=== PATIENT | male | born 1940 | race Caucasian/White ===

== ENCOUNTER 2018-10-03 10:26 | Inpatient (IN) | payer MEDICARE, MEDICAID ==
[~2018-10-03] VITALS: Ht 182.9 cm; Wt 83.5 kg
--- NOTE | 2018-10-03 10:35 | NUR ---
Pt is unable to recall his home medications.
--- NOTE | 2018-10-03 11:21 | NUR ---
Pending CT scan results, patient is AOX4, hard of hearing, resting comfortably on gurney, not in acute distress,+R knee pains 2-5/10 pain scale when not moving the affected site, CMS intact
--- NOTE | 2018-10-03 13:12 | NUR ---
Patient is eating hot lunch tray with good appetite.
[2018-10-03] MEDS ORDERED: MORPHINE SULFATE 2 MG/1 ML DISP.SYRIN IV ONE (13:15)
[2018-10-03] MEDS ORDERED: ONDANSETRON 4 MG/2 ML VIAL IV ONE (13:15)
[2018-10-03] MEDS ORDERED: IV NORMAL SALINE 1000 ML BAG IV ONE (13:15)
[2018-10-03] MEDS ORDERED: MORPHINE SULFATE 4 MG/1 ML DISP.SYRIN ONE ×2 (13:20→15:19)
[2018-10-03] MEDS ORDERED: ONDANSETRON 4 MG/2 ML VIAL ONE (13:20)
[2018-10-03 13:27] LABS: CARBON DIOXIDE 23 mmol/L (21-32); CHLORIDE 106 mmol/L (98-107); CREATININE 0.9 mg/dL (0.6-1.3); GLUCOSE 115 mg/dL (74-106); POTASSIUM 4.2 mmol/L (3.5-5.1); UREA NITROGEN, BLOOD 22 mg/dL (7-18)
[2018-10-03 13:29] LABS: BASOPHILS # (AUTO) 0.1 K/uL (0.0-8.0); BASOPHILS % (AUTO) 0.5 % (0.0-2.0); EOSINOPHILS # (AUTO) 0.1 K/uL (0.0-0.7); HEMATOCRIT 40.3 % (36.7-47.1); HEMOGLOBIN 13.3 g/dL (12.5-16.3); LYMPHOCYTES # (AUTO) 0.8 K/uL (20.0-40.0); LYMPHOCYTES % (AUTO) 5.9 % (20.5-51.5); MEAN CORPUSCULAR HEMOGLOBIN 31.1 uug (23.8-33.4); MEAN CORPUSCULAR HGB CONC 33 g/dL (32.5-36.3); MEAN CORPUSCULAR VOLUME 94.1 fL (73.0-96.2); MONOCYTES # (AUTO) 0.9 K/uL (2.0-10.0); MONOCYTES % (AUTO) 6.6 % (0.0-11.0); NEUTROPHILS # (AUTO) 11.2 K/uL (1.8-8.9); PLATELET COUNT (AUTO) 204 K/uL (152-348); RED BLOOD CELL COUNT(AUTO) 4.29 MIL/uL (4.06-5.63)
[2018-10-03 13:33] LABS: ALANINE AMINOTRANSFERASE 37 U/L (16-63); ALKALINE PHOSPHATASE 92 U/L (50-136); ASPARTATE AMINOTRANSFERASE 33 U/L (15-37); BILIRUBIN,DIRECT 0.1 mg/dL (0.0-0.2); BILIRUBIN,TOTAL 0.5 mg/dL (0.2-1.0); LIPASE 91 U/L (73-393); TOTAL PROTEIN, SERUM 8.1 g/dL (6.4-8.2)
--- NOTE | 2018-10-03 14:27 | NUR ---
EPIC hospitalist is here & evaluating the patient.
--- NOTE | 2018-10-03 14:58 | NUR ---
Per Dr Barkley, 1st call was done to the ortho doctor, pending callback from ortho doctor [email or web address]
[2018-10-03] MEDS ORDERED: Z GUARD REMEDY PASTE 57 GM TUBE TOP PRN (15:15)
[2018-10-03] MEDS ORDERED: MORPHINE SULFATE 2 MG/1 ML DISP.SYRIN IV PRN (15:15)
[2018-10-03] MEDS ORDERED: MAGNESIUM HYDROXIDE 30 ML LIQUID UDC PO PRN (15:15)
[2018-10-03] MEDS ORDERED: ONDANSETRON 4 MG/2 ML VIAL IV PRN (15:15)
[2018-10-03] MEDS ORDERED: ACETAMINOPHEN 325 MG TABLET PO PRN (15:15)
--- NOTE | 2018-10-03 15:19 | NUR ---
2nd dose of IV Morphine 4mg & 4mg IV Zofran given per Dr Barkley's order. Monitored for adverse rxn & for relief of pain to right knee.
--- NOTE | 2018-10-03 15:20 | NUR ---
Patient was found to be absent from the unit at this time. Patient's personal belongings are no longer in the patient's room and patient may have left the hospital with his personal belongings. Security notified and patient is no where to be found in and around hospital premises. Charge nurse and Nurse Reservations And Ticketing Agent notified.
--- NOTE | 2018-10-03 15:30 | NUR ---
Received patient from ER at this time. Stable condition. No signs of distress. No SOB. Alert/oriented x3. 10/10 pain verbalized by patient in right knee where fracture is located. Vital signs taken. Patient's family notified. MD orders have already been placed. Will follow orders. will continue to monitor throughout shift.
[2018-10-03] MEDS ORDERED: MORPHINE SULFATE 4 MG/1 ML DISP.SYRIN IV STA (15:31)
[2018-10-03] MEDS ORDERED: ONDANSETRON 4 MG/2 ML VIAL IV STA (15:31)
--- NOTE | 2018-10-03 15:31 | NUR ---
3rd floor nurse Jamie updated re: pain medicine given in ER department
[2018-10-03 15:57] VITALS: BP 179/99
[2018-10-03] MEDS ORDERED: ASPI81TA31 PO (17:33)
[2018-10-03] MEDS ORDERED: MEGE20TA PO (17:33)
[2018-10-03] MEDS ORDERED: ATOR20TA PO (17:33)
--- NOTE | 2018-10-03 18:30 | NUR ---
Patient resting comfortably in bed at this time. Does not complain of any pain at this time. Patient is only in pain when the right leg is being moved. Patient is comfortably in current position. Consent for surgery signed by patient and witnessed by RN. Surgery is scheduled 9:00 A.M. tomorrow (10/04/18) with Dr. Tejeda. Patient in stable condition at this time. Will continue to monitor until end of shift.
--- NOTE | 2018-10-03 19:30 | NUR ---
PATIENT RECEIVED LYING IN BED. A/O X3. NO SIGNS OF ACUTE DISTRESS. COMFORT AND SAFETY MEASURES PROVIDED. BED IN LOWEST POSITION, BED ALARM ON, CALL LIGHT WITHIN REACH, SIDE [id number]. WILL CONTINUE TO MONITOR PATIENT AND PLACE PATIENT ON NPO AFTER MIDNIGHT.
[2018-10-03 20:00] VITALS: BP 155/80
--- NOTE | 2018-10-03 21:06 | NUR ---
c/o of pain in right knee. Administered Morphine 2mg. Patient tolerated well.
[2018-10-03] MEDS: HYDROCODONE/APAP 5-325MG TABLET PO PRN ×2 (23:38→23:40)
--- NOTE | 2018-10-03 23:41 | NUR ---
patient c/o of pain in right knee. administered norco and tolerated well. will continue to monitor.
--- NOTE | 2018-10-04 00:37 | NUR ---
Spoke with Dr. Stoner regarding patients new throbbing pain that started around 2230 on the right knee. same order for morphine 2mg, but increased frequency from every 4 hours to every 2 hours.
[2018-10-04] MEDS: MORPHINE SULFATE 2 MG/1 ML DISP.SYRIN IV PRN ×3 (00:42→07:05)
--- NOTE | 2018-10-04 00:44 | NUR ---
c/o of right knee pain. administered morphine. tolerated well.
[2018-10-04 04:28] VITALS: BP 139/84
--- NOTE | 2018-10-04 05:00 | NUR ---
c/o of pain administered morphine. tolerated well.
[2018-10-04 06:16] LABS: BASOPHILS # (AUTO) 0.1 K/uL (0.0-8.0); BASOPHILS % (AUTO) 0.6 % (0.0-2.0); EOSINOPHILS # (AUTO) 0.2 K/uL (0.0-0.7); HEMATOCRIT 36.2 % (36.7-47.1); HEMOGLOBIN 12.3 g/dL (12.5-16.3); LYMPHOCYTES # (AUTO) 1.1 K/uL (20.0-40.0); LYMPHOCYTES % (AUTO) 10.1 % (20.5-51.5); MEAN CORPUSCULAR HEMOGLOBIN 31.8 uug (23.8-33.4); MEAN CORPUSCULAR HGB CONC 34 g/dL (32.5-36.3); MEAN CORPUSCULAR VOLUME 93.9 fL (73.0-96.2); MONOCYTES # (AUTO) 1.4 K/uL (2.0-10.0); MONOCYTES % (AUTO) 12.7 % (0.0-11.0); NEUTROPHILS # (AUTO) 8.4 K/uL (1.8-8.9); NEUTROPHILS % (AUTO) 74.6 % (38.5-71.5); PLATELET COUNT (AUTO) 192 K/uL (152-348); RED BLOOD CELL COUNT(AUTO) 3.86 MIL/uL (4.06-5.63); WHITE BLOOD COUNT (AUTO) 11.2 K/uL (3.6-10.2)
--- NOTE | 2018-10-04 06:23 | NUR ---
patient NPO since midnight. slept intermittently. a/o x3. no signs of acute distress. comfort and safety measures provided. bed in lowest position, bed alarm on, call light within reach, side railsx2. will continue to monitor and endorse patient to oncoming shift for continuing care.
[2018-10-04 06:29] LABS: CARBON DIOXIDE 25 mmol/L (21-32); CHLORIDE 103 mmol/L (98-107); CHOLESTEROL 116 mg/dL (<200); GLUCOSE 107 mg/dL (74-106); HDL CHOLESTEROL 49 mg/dL (40-60); MAGNESIUM 1.9 mg/dL (1.8-2.4); PHOSPHOROUS 3.1 mg/dL (2.5-4.9); POTASSIUM 3.8 mmol/L (3.5-5.1); TRIGLYCERIDES 51 MG/DL (30-150); UREA NITROGEN, BLOOD 18 mg/dL (7-18)
--- NOTE | 2018-10-04 07:06 | NUR ---
patient c/o of knee pain. administered morphine. tolerated well.
[2018-10-04 07:22] LABS: *BILIRUBIN,URIN NEGATIVE (NEGATIVE); *BLOOD, URINE NEGATIVE (NEGATIVE); *CLARITY,URINE CLEAR (CLEAR); *COLOR,URINE YELLOW (YELLOW); *KETONES,URINE NEGATIVE (NEGATIVE); *UROBILINOGEN,URINE 0.2 E.U./dl (NORMAL); LEUKOCYTE ESTERASE ,URINE NEGATIVE (NEGATIVE); NITRITE, URINE NEGATIVE (NEGATIVE); PH,URINE 5.5 (5.0-8.0); UGLUCOSE NEGATIVE (NEGATIVE)
[2018-10-04] MEDS ORDERED: POLYMYXIN B SULFATE 500,000 UNITS, BACITRACIN 50,000 UNITS, NORMAL SALINE 20 ML MC ONE ×3 (08:00)
[2018-10-04] MEDS ORDERED: BUPIVACAINE 0.25% 30 ML VIAL ONE (08:09)
--- NOTE | 2018-10-04 08:30 | NUR ---
PICKED UP BY OR FOR SURGERY
[2018-10-04] MEDS ORDERED: MIDAZOLAM HCL 2 MG/2 ML VIAL ONE (08:55)
[2018-10-04] MEDS ORDERED: FENTANYL CITRATE 100 MCG/2 ML AMPUL ONE ×2 (08:55→11:23)
[2018-10-04] MEDS ORDERED: CEFAZOLIN 1 G VIAL MC ONE (09:00)
[2018-10-04] MEDS ORDERED: LIDOCAINE-MPF 2% 5 ML VIAL MC ONE (09:00)
[2018-10-04] MEDS ORDERED: PROPOFOL 200 MG/20 ML BOTTLE IV ONE (09:00)
[2018-10-04] MEDS ORDERED: ONDANSETRON 4 MG/2 ML VIAL IV ONE (09:00)
[2018-10-04] MEDS ORDERED: SEVOFLURANE 250 ML BOTTLE IH ONE (09:00)
[2018-10-04] MEDS ORDERED: IV LACTATED RINGERS SOLUTION 1,000 ML BAG MC ONE (09:00)
[2018-10-04] MEDS ORDERED: VANCOMYCIN 1000 MG VIAL ONE (10:35)
[2018-10-04] MEDS ORDERED: IV D5W-0.45% NS +20 KCL 1,000 ML IV ONE (11:18)
--- NOTE | 2018-10-04 12:03 | NUR ---
RETURNED FROM OR. C/O PAIN REPORT RECEIVED FROM OR NURSE
[2018-10-04] MEDS: MORPHINE SULFATE 4 MG/1 ML DISP.SYRIN IV PRN ×2 (12:17→20:26)
[2018-10-04 12:25] VITALS: BP 161/81
[2018-10-04] MEDS: HYDROCODONE/APAP 10-325 MG TABLET PO PRN (12:26)
[2018-10-04] MEDS: POTASSIUM CHLORIDE 20 MEQ in IV D5 1/2 NS 1000 ML 1,000 ML IV PRN (12:31)
[2018-10-04 12:35] VITALS: BP 157/80
[2018-10-04 12:55] VITALS: BP 154/76
--- NOTE | 2018-10-04 14:30 | NUR ---
took over care from Allie rn, pt asleep at this time, right leg with immobilizer and elevated on pillow, ice pack on, some swelling noted on his right foot, pedal pulses present, vs stable, needs attended, call light within reach
[2018-10-04 15:18] VITALS: BP 148/76
--- NOTE | 2018-10-04 16:00 | NUR ---
voided per urinal and repositioned to side with right leg elevated
[2018-10-04] MEDS: CEFAZOLIN 1 G in PREMIXED 1 EACH IV SCH (17:25)
--- NOTE | 2018-10-04 18:38 | NUR ---
resting, reading his book, repositioned to right side with pillow for support, no bleeding noted, dsg intact with immobilizer on right leg, voided qs this shift, ate good, no n/v, all needs attended, safety measures maintained.
--- NOTE | 2018-10-04 19:30 | NUR ---
Patient received lying in bed and reading book. A/o x3. No signs of acute distress or concerns at this time. Safety and comfort measures provided. Bed in lowest position, bed alarm on, call light within reach, side rails up x2. dressing in tact with immobilizer on right leg and pedal pulses normal. no n/v. Will continue care.
[2018-10-04 20:00] VITALS: BP 138/85
--- NOTE | 2018-10-04 23:40 | NUR ---
c/o of pain. administered norco. patient tolerated well. Addendum: 10/05/18 at 0512 by ELOISE STEWART RN correction: date: is 10/04/18 Addendum: 10/05/18 at 0585 by ELOISE STEWART RN 2nd correction: date: 10/03/18 at 9585.
[2018-10-05] MEDS: MORPHINE SULFATE 4 MG/1 ML DISP.SYRIN IV PRN ×4 (00:13→06:44)
[2018-10-05] MEDS: CEFAZOLIN 1 G in PREMIXED 1 EACH IV SCH (02:00)
[2018-10-05] MEDS: POTASSIUM CHLORIDE 20 MEQ in IV D5 1/2 NS 1000 ML 1,000 ML IV PRN (04:08)
[2018-10-05 04:50] VITALS: BP 137/73
--- NOTE | 2018-10-05 05:39 | NUR ---
Patient received lying in bed and reading book. A/o x3. No signs of acute distress or concerns at this time. Safety and comfort measures provided. Bed in lowest position, bed alarm on, call light within reach, side rails up x2. dressing in tact with immobilizer on right leg and pedal pulses normal. no n/v. Will continue care. Addendum: 10/05/18 at 0540 by ELOISE STEWART RN patient sleeping intermittently throughout the night. No signs of acute distress or concerns at this time. Safety and comfort measures provided. Bed in lowest position, bed alarm on, call light within reach, side rails up x2. prescribed medications administered and tolerated well. dressing in tact with immobilizer on right leg and pedal pulses present. no n/v. Will continue care and endorse to oncoming shift.
[2018-10-05] MEDS: HYDROCODONE/APAP 10-325 MG TABLET PO PRN ×4 (05:48→21:10)
--- NOTE | 2018-10-05 06:45 | NUR ---
medications administered c/o of pain and morphine 4 mg administered and tolerated well at times: 0423, 0205, 0013, 2025, 0644 c/o of pain and norco administered and tolerated well at times: 0540
[2018-10-05 06:53] LABS: BASOPHILS % (AUTO) 0.4 % (0.0-2.0); EOSINOPHILS # (AUTO) 0.2 K/uL (0.0-0.7); HEMATOCRIT 28.1 % (36.7-47.1); HEMOGLOBIN 9.6 g/dL (12.5-16.3); LYMPHOCYTES # (AUTO) 1.1 K/uL (20.0-40.0); LYMPHOCYTES % (AUTO) 8.9 % (20.5-51.5); MEAN CORPUSCULAR HEMOGLOBIN 31.9 uug (23.8-33.4); MEAN CORPUSCULAR HGB CONC 34 g/dL (32.5-36.3); MEAN CORPUSCULAR VOLUME 93.7 fL (73.0-96.2); MONOCYTES # (AUTO) 1.9 K/uL (2.0-10.0); MONOCYTES % (AUTO) 15.8 % (0.0-11.0); NEUTROPHILS # (AUTO) 8.9 K/uL (1.8-8.9); NEUTROPHILS % (AUTO) 72.9 % (38.5-71.5); PLATELET COUNT (AUTO) 162 K/uL (152-348); RED BLOOD CELL COUNT(AUTO) 2.99 MIL/uL (4.06-5.63); WHITE BLOOD COUNT (AUTO) 12.2 K/uL (3.6-10.2)
[2018-10-05 07:06] LABS: CARBON DIOXIDE 25 mmol/L (21-32); CHLORIDE 101 mmol/L (98-107); CREATININE 0.8 mg/dL (0.6-1.3); GLUCOSE 124 mg/dL (74-106); POTASSIUM 4.3 mmol/L (3.5-5.1); UREA NITROGEN, BLOOD 14 mg/dL (7-18)
--- NOTE | 2018-10-05 08:15 | NUR ---
Received patient, awake, alert x3, resting in bed. With tolerable pain over right knee. Knee immobilizer in place. Surgical dressing intact and dry. With IV fluids running at left hand g20 KCL 20 Meq D51/2 NS. Not in any form of distress, will continue to monitor.
[2018-10-05] MEDS: ENSURE CLEAR 240 ML LIQUID (MIX BERRY) PO SCH (08:27)
[2018-10-05 08:59] LABS: LYMPHOCYTES % (MANUAL) 12 % (20-40); MONOCYTES % (MANUAL) 15 % (2-10); NEUTROPHILS % (MANUAL) 73 % (42-75)
--- NOTE | 2018-10-05 09:30 | NUR ---
Seen and followed by Physical therapy, maintained non-weight bearing on right knee. Knee immobilizer in place.
[2018-10-05] MEDS: IV NS 1000 ML 1,000 ML IV PRN (10:59)
[2018-10-05 11:40] VITALS: BP 123/66
[2018-10-05] MEDS: FAMOTIDINE 20 MG TABLET PO SCH ×2 (12:48→21:10)
[2018-10-05 15:40] VITALS: BP 131/65
--- NOTE | 2018-10-05 20:00 | NUR ---
RECEIVED PATIENT AWAKE IN BED. PATIENT IS ALERT AND ORIENTED X2 WITH NO COMPLAINTS OF PAIN OR DISTRESS AT THIS TIME. IV SITE IS PATENT AND INTACT. VS ARE WNL AND PATIENT IS STABLE. ALL SAFETY AND FALL PRECAUTION MEASURES ARE IN PLACE. CALL LIGHT AND PERSONAL ITEMS ARE WITHIN REACH. WILL CONTINUE TO MONITOR.
[2018-10-05 20:06] VITALS: BP 118/65
[2018-10-06] MEDS: IV NS 1000 ML 1,000 ML IV PRN ×2 (00:15→15:31)
[2018-10-06] MEDS: MORPHINE SULFATE 4 MG/1 ML DISP.SYRIN IV PRN ×4 (00:29→21:07)
[2018-10-06] MEDS: HYDROCODONE/APAP 10-325 MG TABLET PO PRN (03:17)
--- NOTE | 2018-10-06 05:00 | NUR ---
PATIENT SLEPT INTERMITTENTLY THROUGHOUT NIGHT, WAKING ONLY TO USE THE URINAL AND WHEN IN PAIN, WITH PRESCRIBED ANALGESICS PROVIDED TO RELIEVE PAIN. ALL NURSING NEEDS WERE MET PROMPTLY. PATIENT WAS KEPT WARM AND DRY THROUGHOUT SHIFT. VS ARE WNL AND PATIENT IS STABLE. ALL SAFETY AND FALL PRECAUTION MEASURES REMAIN IN PLACE. CALL LIGHT AND PERSONAL BELONGINGS ARE WITHIN REACH AT ALL TIMES.
[2018-10-06 05:34] VITALS: BP 120/62
[2018-10-06 06:42] LABS: BASOPHILS % (AUTO) 0.4 % (0.0-2.0); EOSINOPHILS # (AUTO) 0.8 K/uL (0.0-0.7); EOSINOPHILS % (AUTO) 8.2 % (0.0-7.0); HEMOGLOBIN 8.9 g/dL (12.5-16.3); LYMPHOCYTES # (AUTO) 1.2 K/uL (20.0-40.0); LYMPHOCYTES % (AUTO) 12.8 % (20.5-51.5); MEAN CORPUSCULAR HEMOGLOBIN 32.2 uug (23.8-33.4); MEAN CORPUSCULAR HGB CONC 34 g/dL (32.5-36.3); MEAN CORPUSCULAR VOLUME 93.9 fL (73.0-96.2); MONOCYTES # (AUTO) 1.2 K/uL (2.0-10.0); MONOCYTES % (AUTO) 13.1 % (0.0-11.0); NEUTROPHILS # (AUTO) 6.2 K/uL (1.8-8.9); NEUTROPHILS % (AUTO) 65.5 % (38.5-71.5); PLATELET COUNT (AUTO) 147 K/uL (152-348); RED BLOOD CELL COUNT(AUTO) 2.76 MIL/uL (4.06-5.63); WHITE BLOOD COUNT (AUTO) 9.4 K/uL (3.6-10.2)
[2018-10-06 06:53] LABS: CARBON DIOXIDE 23 mmol/L (21-32); CHLORIDE 104 mmol/L (98-107); CREATININE 0.6 mg/dL (0.6-1.3); GLUCOSE 94 mg/dL (74-106); POTASSIUM 3.7 mmol/L (3.5-5.1); UREA NITROGEN, BLOOD 14 mg/dL (7-18)
--- NOTE | 2018-10-06 08:00 | NUR ---
Received patient awake, alert and oriented in bed. No complaints of pain at this time. No acute distress noted. IV on left forearm intact and patent with NS running at 75mls/hr. Comfort provided. Safety measures implemented. All needs met at this time. Call light within reach. Will continue to monitor throughout shift.
[2018-10-06] MEDS: FAMOTIDINE 20 MG TABLET PO SCH ×2 (08:10→20:30)
[2018-10-06] MEDS: ENSURE CLEAR 240 ML LIQUID (MIX BERRY) PO SCH (08:48)
[2018-10-06 11:30] VITALS: BP 123/56
[2018-10-06 16:05] VITALS: BP 130/58
[2018-10-06 16:46] LABS: HEMATOCRIT 27.3 % (36.7-47.1); HEMOGLOBIN 9.1 g/dL (12.5-16.3)
--- NOTE | 2018-10-06 19:50 | NUR ---
ALERT ORIENTED, NO SOB NO CHEST PAIN, R LEG WITH DRESSING, AND WITH BRACE, R TOES COLOR WNL, CONT ON PAIN MANAGEMENT, CALL LIGHT WITHIN REACH.
[2018-10-06 20:05] VITALS: BP 144/54
[2018-10-07 06:03] VITALS: BP 125/58
[2018-10-07] MEDS: MORPHINE SULFATE 4 MG/1 ML DISP.SYRIN IV PRN ×3 (06:28→12:08)
--- NOTE | 2018-10-07 06:58 | NUR ---
PATIENT ALERT ORIENTED, NO SOB NO CHEST PAIN, R KNEE WITH DRESSING AND LEG BRACE. KEPT LEG ELEVATED WITH PILLOW. CONT ON PAIN MANAGEMENT, USES URINAL FOR ELIMINATIONS. CALL LIGHT WITHIN REACH.
[2018-10-07] MEDS: ENSURE CLEAR 240 ML LIQUID (MIX BERRY) PO SCH (08:00)
[2018-10-07] MEDS ORDERED: BISACODYL 5 MG TABLET.DR PO ONE (08:30)
[2018-10-07] MEDS: FAMOTIDINE 20 MG TABLET PO SCH (09:18)
[2018-10-07 09:58] LABS: BASOPHILS % (AUTO) 0.4 % (0.0-2.0); EOSINOPHILS % (AUTO) 10.7 % (0.0-7.0); HEMOGLOBIN 9.6 g/dL (12.5-16.3); LYMPHOCYTES # (AUTO) 1.1 K/uL (20.0-40.0); LYMPHOCYTES % (AUTO) 11.2 % (20.5-51.5); MEAN CORPUSCULAR HEMOGLOBIN 32.3 uug (23.8-33.4); MEAN CORPUSCULAR HGB CONC 34 g/dL (32.5-36.3); MEAN CORPUSCULAR VOLUME 94.1 fL (73.0-96.2); MONOCYTES # (AUTO) 0.9 K/uL (2.0-10.0); MONOCYTES % (AUTO) 9.2 % (0.0-11.0); NEUTROPHILS # (AUTO) 6.5 K/uL (1.8-8.9); NEUTROPHILS % (AUTO) 68.5 % (38.5-71.5); PLATELET COUNT (AUTO) 193 K/uL (152-348); RED BLOOD CELL COUNT(AUTO) 2.97 MIL/uL (4.06-5.63); WHITE BLOOD COUNT (AUTO) 9.5 K/uL (3.6-10.2)
[2018-10-07 10:12] LABS: CARBON DIOXIDE 23 mmol/L (21-32); CHLORIDE 105 mmol/L (98-107); CREATININE 0.9 mg/dL (0.6-1.3); GLUCOSE 139 mg/dL (74-106); POTASSIUM 3.7 mmol/L (3.5-5.1); UREA NITROGEN, BLOOD 13 mg/dL (7-18)
[2018-10-07] MEDS ORDERED: HYDR-4354 PO (10:26)
[2018-10-07 11:48] VITALS: BP 106/61
--- NOTE | 2018-10-07 11:52 | NUR ---
Report received from Sourav Brown, immediately after I was informed by bottle caser that patient will be dcd today. Will continue with care plan. Addendum: 10/07/18 at 1200 by PADMINI HENDRICKS RN Patient received on [facility]-chair. AAOX1. RLE with immobilizer in place extremity cool to touch, pt. able to wiggle his toes with no c/of pain at this time. Will continue to care.
--- NOTE | 2018-10-07 14:37 | NUR ---
Report given to rn Brown Vieyra R.N. informed of follow up appointment to see orthopedic surgeon Dr. nelson copy of printed address and phone number with time of appointment in pt's file. IV line dcd. Patient AAOX-1-2. Rle with immobilizer, circulation intact. pictures taken. 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
--- NOTE | 2018-10-07 15:35 | NUR ---
Bedside report given to Ishmael transferring ambulance staff. patient leaving facility AAOX1-2 IV line dcd. no c/of pain at this time. Patient assisted from bed to [facility] by Mian and his partner. dcd documents with ambulance staff.
--- NOTE | 2018-10-07 16:32 | NUR ---
Patient taken via ambulance, AAOx1-2. vitals stable.
== END 2018-10-07 15:45 | DRG 493 ==
LOC: ER 10:26 → MEDSURG3 15:08
PROVIDERS: ADMIT Nurse Practitioner Acute Care; ATTEND Nurse Practitioner Acute Care
PROC: 0QSG04Z Reposition Right Tibia with Internal Fixation Device, Open Approach (ICD-10-PCS; principal; 2018-10-04)
DX: S82.141A Displaced bicondylar fracture of right tibia, initial encounter for closed fracture (principal); G81.91 Hemiplegia, unspecified affecting right dominant side; E87.1 Hypo-osmolality and hyponatremia; S82.451A Displaced comminuted fracture of shaft of right fibula, initial encounter for closed fracture; W01.0XXA Fall on same level from slipping, tripping and stumbling without subsequent striking against object, initial encounter; Y93.89 Activity, other specified; Y92.89 Other specified places as the place of occurrence of the external cause; B91 Sequelae of poliomyelitis; Z85.46 Personal history of malignant neoplasm of prostate; Z90.79 Acquired absence of other genital organ(s); H91.90 Unspecified hearing loss, unspecified ear; D64.9 Anemia, unspecified; N40.0 Benign prostatic hyperplasia without lower urinary tract symptoms; M85.80 Other specified disorders of bone density and structure, unspecified site; E86.0 Dehydration; R79.89 Other specified abnormal findings of blood chemistry; D72.829 Elevated white blood cell count, unspecified
CPT/HCPCS: 36415; 70030-TC; 71045; 73590; 73700; 83690; 83735; 84100; 84443; 85018; 85025; 85730; 93005; 97110; 97112; 97530; A4649; A4663; G0378; J0690; J2250; J2270; J2405; J3010; J3370; J3480; J3490; J7030; J7120